=== PATIENT | female | born 1980 | race African-American/Black ===

== ENCOUNTER 2020-10-18 01:02 | Inpatient (IN) | payer OTHER ==
[~2020-10-18] VITALS: Ht 170.2 cm; Wt 159.6 kg
[2020-10-18] VITALS (7 sets, daily range): BP systolic 136–178; BP diastolic 92–135
--- NOTE | 2020-10-18 01:10 | NUR ---
TASK RN: PT BIBA FROM HOME DUE TO NEW ONSET SOB AND RIGHT SIDED RIB PAIN/CHEST PAIN. PT GIVEN 4 MG ODT ZOFRAN AND 50 MCG INTRANASAL FENTANYL. PT PLACED ON SPO2/BP/ECG MONITORING. PT HYPERTENSIVE ON ARRIVAL 276/177 AND TACHY ON ARRIVAL, 125. Patient is resting comfortably in bed. Bed in lowest, rails engaged, call light on lap. PROVIDED WARM BLANKETS FOR COMFORT. [facility].
[2020-10-18] MEDS ORDERED: hydrALAzine 20 MG/ML, 1ML ONE (01:22)
[2020-10-18] MEDS ORDERED: hydrALAzine 20 MG/ML, 1ML IV ONE ×2 (01:30→02:30)
[2020-10-18 01:42] LABS: BASOPHILS % (AUTO) 0 % (0-1); EOSINOPHILS % (AUTO) 1 % (1-7); LYMPHOCYTES % (AUTO) 15 % (22-44); MEAN CORPUSCULAR HEMOGLOBIN 29.5 pg (27.0-34.8); MEAN CORPUSCULAR HGB CONC 33.1 g/dL (32.4-35.8); MEAN PLATELET VOLUME 8.2 fL (7.4-10.4); MONOCYTES % (AUTO) 7 % (2-9); NEUTROPHILS % (AUTO) 77 % (42-75); PLATELET COUNT 294 x10^3/uL (130-400); RED BLOOD COUNT 4.08 x10^6/uL (3.82-5.3); RED CELL DISTRIBUTION WIDTH 15.6 % (9.6-15.2)
[2020-10-18 01:50] LABS: ALANINE AMINOTRANSFERASE 19 U/L (12-78); ALBUMIN 3.3 g/dL (3.4-5.0); ANION GAP 9 mmol/L (5-15); CALCIUM 9.4 mg/dL (8.5-10.1); CHLORIDE 104 mmol/L (98-107); CREATININE 1.29 mg/dL (0.55-1.02)
[2020-10-18 01:55] LABS: ALKALINE PHOSPHATASE 62 U/L (45-117); BILIRUBIN,TOTAL 0.7 mg/dL (0.2-1.0); TOTAL PROTEIN 8.3 g/dL (6.4-8.2); TROPONIN I < 0.015 ng/mL (0.000-0.045)
--- NOTE | 2020-10-18 01:55 | NUR ---
PT AWAKE AND ALERT AND NO ACUTE DISTRESS. PTS BP IS VERY HIGH, AND MD TO BEDSIDE TO EVAL PT. PT HAS PIV STARTED TO RIGHT AC X1 ATTEMPT WITH 18G. PT ON CR MONITOR, O2 SAT PROBE AND BP CUFF. PT UP TO THE COMMODE AFTER PIV PLACED AND NO ACUTE DISTRESS OR ISSUES WITH AMBULATING. WAITING ON CT TO COME AND TAKE PT FOR CTA.
--- NOTE | 2020-10-18 02:41 | NUR ---
Break RN: BP re-check. 176/96. 2nd dose of hydralazine held. MD aware.
[2020-10-18] MEDS ORDERED: OMNIPAQUE 350 MG/ML, 100ML BOTTLE ONE (02:55)
--- NOTE | 2020-10-18 03:24 | NUR ---
PT TO BE ADMITTED PER MD. PT RESTING COMFORTABLY, AND HAS BEEN UP TO THE BATHROOM TWO TIMES ON HER OWN, STEADY GAIT, NO ISSUES.
[2020-10-18] MEDS ORDERED: ENOXAPARIN 80 MG/0.8 ML SQ ONE (04:00)
--- NOTE | 2020-10-18 04:44 | NUR ---
REPORT CALLED TO JASMINE HILL, WITHOUT INCIDENT. PT A&OX4 NO ACUTE DISTRESS, AND TO BE TRANSPORTED TO MED/TELE.
--- NOTE | 2020-10-18 04:47 | NUR ---
PT TAKEN TO FLOOR BY MIXED [employer] AND [employer], NO ACUTE DISTRESS. PT TOLERATED WELL.
[2020-10-18] MEDS ORDERED: LABETALOL 5MG/ML, 20ML IVPush PRN (05:00)
[2020-10-18] MEDS: ENOXAPARIN 80 MG/0.8 ML SQ SCH ×2 (05:00→17:56)
[2020-10-18] MEDS ORDERED: POLYETHYLENE GLYCOL 17 GM PACKET PO PRN (05:00)
[2020-10-18] MEDS ORDERED: ONDANSETRON 2MG/ML, 2ML IVPush PRN (05:00)
[2020-10-18] MEDS ORDERED: MELATONIN 5 MG TABLET PO PRN (05:00)
[2020-10-18] MEDS: MORPHINE SULFATE 4 MG/ML, 1ML IV PRN ×2 (05:11→10:08)
[2020-10-18] MEDS: CARVEDILOL 3.125 MG TABLET PO SCH ×2 (05:54→17:55)
[2020-10-18 05:55] LABS: TROPONIN I < 0.015 ng/mL (0.000-0.045)
[2020-10-18 11:17] LABS: TROPONIN I < 0.015 ng/mL (0.000-0.045)
[2020-10-18] MEDS: OXYcodone IR 5MG TABLET PO PRN ×2 (14:08→15:50)
[2020-10-18] MEDS: hydrALAzine 20 MG/ML, 1ML IVPush PRN (14:08)
[2020-10-19] VITALS (9 sets, daily range): BP systolic 140–182; BP diastolic 84–115
[2020-10-19] MEDS: hydrALAzine 20 MG/ML, 1ML IVPush PRN ×2 (02:09→20:03)
[2020-10-19] MEDS: ENOXAPARIN 80 MG/0.8 ML SQ SCH ×2 (05:04→16:05)
[2020-10-19] MEDS: CARVEDILOL 3.125 MG TABLET PO SCH (05:04)
[2020-10-19 06:35] LABS: BASOPHILS % (AUTO) 0 % (0-1); EOSINOPHILS % (AUTO) 1 % (1-7); LYMPHOCYTES % (AUTO) 23 % (22-44); MEAN CORPUSCULAR HGB CONC 32.4 g/dL (32.4-35.8); MEAN PLATELET VOLUME 8.4 fL (7.4-10.4); MONOCYTES % (AUTO) 8 % (2-9); NEUTROPHILS % (AUTO) 68 % (42-75); PLATELET COUNT 266 x10^3/uL (130-400); RED BLOOD COUNT 3.76 x10^6/uL (3.82-5.3); RED CELL DISTRIBUTION WIDTH 15.9 % (9.6-15.2)
[2020-10-19 06:39] LABS: ANION GAP 8 mmol/L (5-15); CALCIUM 8.5 mg/dL (8.5-10.1); CHLORIDE 103 mmol/L (98-107); CREATININE 1.18 mg/dL (0.55-1.02)
[2020-10-19] MEDS ORDERED: AMLODIPINE 5 MG TABLET PO SCH (09:00)
[2020-10-19] MEDS ORDERED: POTASSIUM CHLORIDE 20 MEQ TAB.ER.PRT PO ONE (12:00)
[2020-10-19] MEDS: CHLORTHALIDONE 25 MG TABLET PO SCH (14:12)
[2020-10-19] MEDS ORDERED: AMLODIPINE 5 MG TABLET PO ONE (16:00)
[2020-10-19 17:58] LABS: INTERNATIONAL NORMALIZED RATIO 0.95 (0.93-1.1); PROTHROMBIN TIME 10.2 Seconds (9.6-11.5)
[2020-10-19] MEDS ORDERED: WARFARIN 10 MG TABLET PO-COUM ONE (18:30)
[2020-10-19] MEDS ORDERED: WARFARIN 5 MG TABLET PO-COUM ONE (18:39)
[2020-10-19] MEDS: CARVEDILOL 6.25 MG TABLET PO SCH (19:33)
[2020-10-19 20:07] LABS: MICROSCOPIC AUTO
[2020-10-19] MEDS: ACETAMINOPHEN 325 MG TABLET PO PRN (20:08)
[2020-10-20 03:37] VITALS: BP 171/113
[2020-10-20] MEDS: ENOXAPARIN 80 MG/0.8 ML SQ SCH ×2 (03:42→16:05)
[2020-10-20] MEDS: hydrALAzine 20 MG/ML, 1ML IVPush PRN ×2 (03:43→09:37)
[2020-10-20 05:10] VITALS: BP 157/98
[2020-10-20] MEDS: CARVEDILOL 6.25 MG TABLET PO SCH (05:14)
[2020-10-20 06:41] LABS: BASOPHILS % (AUTO) 1 % (0-1); EOSINOPHILS % (AUTO) 2 % (1-7); LYMPHOCYTES % (AUTO) 30 % (22-44); MEAN CORPUSCULAR HEMOGLOBIN 29.2 pg (27.0-34.8); MEAN CORPUSCULAR HGB CONC 32.7 g/dL (32.4-35.8); MEAN PLATELET VOLUME 8.6 fL (7.4-10.4); MONOCYTES % (AUTO) 9 % (2-9); NEUTROPHILS % (AUTO) 58 % (42-75); PLATELET COUNT 299 x10^3/uL (130-400); RED BLOOD COUNT 3.81 x10^6/uL (3.82-5.3); RED CELL DISTRIBUTION WIDTH 15.8 % (9.6-15.2)
[2020-10-20 06:48] LABS: INTERNATIONAL NORMALIZED RATIO 1.02 (0.93-1.1); PROTHROMBIN TIME 10.9 Seconds (9.6-11.5)
[2020-10-20 06:50] LABS: % IRON SATURATION 16 % (20-55); ALBUMIN 2.7 g/dL (3.4-5.0); ANION GAP 5 mmol/L (5-15); CALCIUM 8.9 mg/dL (8.5-10.1); CHLORIDE 104 mmol/L (98-107); IRON LEVEL 46 mcg/dL (50-170); TOTAL IRON BINDING CAPACITY 285 mcg/dL (250-450)
[2020-10-20] MEDS: WARFARIN HIGH DOSE PROTOCOL XX SCH (07:26)
[2020-10-20] MEDS: ACETAMINOPHEN 325 MG TABLET PO PRN ×2 (07:36→14:19)
[2020-10-20] MEDS: CHLORTHALIDONE 25 MG TABLET PO SCH (07:37)
[2020-10-20] MEDS: AMLODIPINE 5 MG TABLET PO SCH (07:37)
[2020-10-20] MEDS: OXYcodone IR 5MG TABLET PO PRN ×2 (07:38→14:19)
[2020-10-20] MEDS ORDERED: CARVEDILOL 6.25 MG TABLET PO ONE (08:00)
[2020-10-20] MEDS ORDERED: FERROUS GLUCONATE 324 MG TABLET PO SCH (09:00)
[2020-10-20 09:21] VITALS: BP 159/106
[2020-10-20 12:07] VITALS: BP 117/118
[2020-10-20 13:56] VITALS: BP 151/96
[2020-10-20 15:40] LABS: CREATININE,URINE RANDOM 85.5 mg/dL
[2020-10-20] MEDS: CARVEDILOL 12.5 MG TABLET PO SCH (17:07)
[2020-10-20] MEDS ORDERED: WARFARIN 7.5 MG TABLET PO-COUM SCH (18:00)
[2020-10-20 19:28] VITALS: BP 151/83
[2020-10-21] VITALS (7 sets, daily range): BP systolic 129–176; BP diastolic 78–120
[2020-10-21] MEDS: ENOXAPARIN 80 MG/0.8 ML SQ SCH ×2 (04:12→16:11)
[2020-10-21] MEDS: CARVEDILOL 12.5 MG TABLET PO SCH ×2 (06:02→18:11)
[2020-10-21 06:40] LABS: BASOPHILS % (AUTO) 1 % (0-1); EOSINOPHILS % (AUTO) 2 % (1-7); LYMPHOCYTES % (AUTO) 30 % (22-44); MEAN CORPUSCULAR HEMOGLOBIN 28.9 pg (27.0-34.8); MEAN CORPUSCULAR HGB CONC 32.5 g/dL (32.4-35.8); MEAN PLATELET VOLUME 8.2 fL (7.4-10.4); MONOCYTES % (AUTO) 9 % (2-9); NEUTROPHILS % (AUTO) 58 % (42-75); PLATELET COUNT 363 x10^3/uL (130-400); RED BLOOD COUNT 4.14 x10^6/uL (3.82-5.3); RED CELL DISTRIBUTION WIDTH 15.6 % (9.6-15.2)
[2020-10-21 06:44] LABS: INTERNATIONAL NORMALIZED RATIO 1.13 (0.93-1.1)
[2020-10-21 06:46] LABS: ALBUMIN 2.9 g/dL (3.4-5.0); ANION GAP 5 mmol/L (5-15); CHLORIDE 103 mmol/L (98-107); CREATININE 0.99 mg/dL (0.55-1.02)
[2020-10-21] MEDS: CHLORTHALIDONE 25 MG TABLET PO SCH (09:31)
[2020-10-21] MEDS: AMLODIPINE 5 MG TABLET PO SCH (09:31)
[2020-10-21] MEDS: WARFARIN HIGH DOSE PROTOCOL XX SCH (11:57)
[2020-10-21] MEDS ORDERED: WARFARIN 7.5 MG TABLET PO-COUM ONE (18:00)
[2020-10-21] MEDS: hydrALAzine 20 MG/ML, 1ML IVPush PRN (21:11)
[2020-10-22 00:53] VITALS: BP 138/86
[2020-10-22] MEDS: CARVEDILOL 12.5 MG TABLET PO SCH ×2 (05:15→17:47)
[2020-10-22] MEDS: ENOXAPARIN 80 MG/0.8 ML SQ SCH ×2 (05:15→17:46)
[2020-10-22 06:34] LABS: INTERNATIONAL NORMALIZED RATIO 1.33 (0.93-1.1)
[2020-10-22] MEDS: AMLODIPINE 5 MG TABLET PO SCH (09:19)
[2020-10-22] MEDS: CHLORTHALIDONE 25 MG TABLET PO SCH (09:19)
[2020-10-22 10:43] LABS: ALBUMIN 3.1 g/dL (3.4-5.0); ANION GAP 10 mmol/L (5-15); CHLORIDE 101 mmol/L (98-107); CREATININE 1.08 mg/dL (0.55-1.02)
[2020-10-22] MEDS: CHOLECALCIFEROL 1,000 UNIT TABLET PO SCH (11:37)
[2020-10-22] MEDS: WARFARIN HIGH DOSE PROTOCOL XX SCH (11:58)
[2020-10-22 12:51] VITALS: BP 177/99
[2020-10-22] MEDS: LISINOPRIL 5 MG TABLET PO SCH (17:47)
[2020-10-22 17:55] LABS: ANA SCREEN NEGATIVE (Negative)
[2020-10-22] MEDS ORDERED: WARFARIN 10 MG TABLET PO-COUM ONE (18:00)
[2020-10-22 18:41] VITALS: BP 173/93
[2020-10-23 01:52] VITALS: BP 148/78
[2020-10-23 05:28] VITALS: BP 130/85
[2020-10-23 05:30] LABS: BASOPHILS % (AUTO) 1 % (0-1); EOSINOPHILS % (AUTO) 2 % (1-7); LYMPHOCYTES % (AUTO) 36 % (22-44); MEAN CORPUSCULAR HEMOGLOBIN 29.4 pg (27.0-34.8); MEAN CORPUSCULAR HGB CONC 32.9 g/dL (32.4-35.8); MEAN PLATELET VOLUME 8.4 fL (7.4-10.4); MONOCYTES % (AUTO) 10 % (2-9); NEUTROPHILS % (AUTO) 50 % (42-75); PLATELET COUNT 354 x10^3/uL (130-400); RED BLOOD COUNT 3.83 x10^6/uL (3.82-5.3)
[2020-10-23] MEDS: ENOXAPARIN 80 MG/0.8 ML SQ SCH (05:30)
[2020-10-23] MEDS: CARVEDILOL 12.5 MG TABLET PO SCH (05:30)
[2020-10-23] MEDS: OXYcodone IR 5MG TABLET PO PRN ×2 (05:37→13:34)
[2020-10-23 05:39] LABS: INTERNATIONAL NORMALIZED RATIO 1.92 (0.93-1.1); PROTHROMBIN TIME 19.9 Seconds (9.6-11.5)
[2020-10-23 05:42] LABS: ANION GAP 5 mmol/L (5-15); CALCIUM 9.2 mg/dL (8.5-10.1); CHLORIDE 100 mmol/L (98-107); CREATININE 1.24 mg/dL (0.55-1.02)
[2020-10-23 08:55] VITALS: BP 126/69
[2020-10-23] MEDS ORDERED: AMLODIPINE 5 MG TABLET PO SCH (09:00)
[2020-10-23] MEDS: CHLORTHALIDONE 25 MG TABLET PO SCH (09:37)
[2020-10-23] MEDS: CHOLECALCIFEROL 1,000 UNIT TABLET PO SCH (09:37)
[2020-10-23] MEDS: LISINOPRIL 5 MG TABLET PO SCH (09:37)
[2020-10-23 12:21] VITALS: BP 121/80
[2020-10-23] MEDS ORDERED: LISI5TAB7 PO (15:12)
[2020-10-23] MEDS ORDERED: AMLO-150 PO (15:12)
[2020-10-23] MEDS ORDERED: MELA5TAB14 PO (15:12)
[2020-10-23] MEDS ORDERED: CHOL10003 PO (15:12)
[2020-10-23] MEDS ORDERED: FERR324T23 PO (15:12)
[2020-10-23] MEDS ORDERED: CARV12.52 PO (15:12)
[2020-10-23] MEDS ORDERED: CHLO25TA PO (15:12)
[2020-10-23] MEDS ORDERED: APIX5TAB4 PO (15:15)
== END 2020-10-23 17:59 | disposition home or self-care (01) | DRG 176 ==
LOC: ED 03:45 → EDIP 04:36 → 4WST 04:53
PROVIDERS: ADMIT Internal Medicine; ATTEND Internal Medicine
DX: I26.99 Other pulmonary embolism without acute cor pulmonale (principal); I16.1 Hypertensive emergency; Z68.43 Body mass index [BMI] 50.0-59.9, adult; E87.1 Hypo-osmolality and hyponatremia; N17.9 Acute kidney failure, unspecified; D64.9 Anemia, unspecified; E87.6 Hypokalemia; I15.9 Secondary hypertension, unspecified; Z82.49 Family history of ischemic heart disease and other diseases of the circulatory system; Z83.2 Family history of diseases of the blood and blood-forming organs and certain disorders involving the immune mechanism; E66.01 Morbid (severe) obesity due to excess calories; K80.20 Calculus of gallbladder without cholecystitis without obstruction; N18.9 Chronic kidney disease, unspecified
CPT/HCPCS: 36415; 71275; 80048; 80053; 80069; 81001; 82043; 82088; 82306; 82530; 82533; 82570; 82728; 83520; 83540; 83550; 83735; 83835; 83880; 84100; 84156; 84244; 84443; 84484; 84550; 84703; 85025; 85300; 85301; 85302; 85303; 85598; 85610; 85613; 85670; 85730; 85732; 86038; 86146; 86147; 86148; 87086; 93005; 93306; 93970; 93975; 96374; 96375; 96376; G0378; J1650; Q9967; J0360; J2270